=== PATIENT | female | born 1960 | race Caucasian/White ===

== ENCOUNTER 2021-02-02 06:25 | Inpatient (IN) | payer OTHER ==
[~2021-02-02] VITALS: Ht 165.1 cm; Wt 95.1 kg
[2021-02-02 06:46] LABS: BASOPHIL 0.2 % (0-2); EOSINOPHIL 0.4 % (0-5); HCT 34.4 % (37.0-47.0); HGB 12.3 g/dl (12.5-16.0); LYMPHOCYTE 6.4 % (15-48); MCH 30.1 pg (25.0-31.0); MCHC 35.8 g/dL (32.0-36.0); MCV 84.1 fL (78.0-100.0); MONOCYTE 2.5 % (0-12); MPV 9.6 fL (6.0-9.5); NEUTROPHIL 89.9 % (41-80); NRBC 0; PLT 157 K/uL (150-400); RBC 4.09 M/uL (4.20-5.40); RDW 12.3 % (11.5-14.0); WBC 4.8 K/uL (4.0-10.5)
[2021-02-02 07:11] LABS: PRO-BNP 727 pg/mL (<125)
[2021-02-02 07:13] LABS: LACTIC ACID 1.2 mmol/L (0.4-1.9)
[2021-02-02 07:38] LABS: ALBUMIN 3.3 g/dL (3.4-5.0); ALKALINE PHOSHATASE 99 U/L (46-116); ALT 131 U/L (14-59); AMYLASE 42 U/L (25-115); AST 112 U/L (15-37); BILIRUBIN - TOTAL 0.6 mg/dL (0.2-1.0); BUN 7 mg/dL (7-18); BUN/CREAT RATIO (CALC) 8.9 RATIO; C-REACTIVE PROTEIN >18.00 mg/dL (<=0.90); CHLORIDE 95 mmol/L (98-107); CO2 (BICARBONATE) 33 mmol/L (21-32); CREATININE 0.79 mg/dL (0.51-0.95); GLOBULIN (CALCULATION) 3.4 g/dL; GLUCOSE 126 mg/dL (74-106); POTASSIUM 3.1 mmol/L (3.5-5.1); TOTAL PROTEIN 6.7 g/dL (6.4-8.2)
[2021-02-02 08:49] LABS: FT4 (FREE T4) 1.2 ng/dL (0.76-1.46); MAGNESIUM 1.5 mg/dL (1.8-2.4); PHOSPHORUS 2.9 mg/dL (2.6-4.7)
[2021-02-02 08:50] LABS: BILIRUBIN NEGATIVE (NEGATIVE); BLOOD NEGATIVE Ery/uL (NEGATIVE); CLARITY CLEAR (CLEAR); COLOR YELLOW (YELLOW); GLUCOSE (U) NORMAL (NORMAL); LEUKOCYTES NEGATIVE Leu/uL (NEGATIVE); NITRITE NEGATIVE (NEGATIVE); PROTEIN NEGATIVE (NEGATIVE); SPECIFIC GRAVITY <=1.005 (1.001-1.030); UROBILINOGEN 0.2 mg/dL (0.2-1.0)
[2021-02-02] MEDS ORDERED: HCTZ12.5 MG PO (11:48)
[2021-02-02] MEDS ORDERED: NEURONTIN300 MG PO (11:48)
[2021-02-02] MEDS ORDERED: LIPITOR40 MG PO (11:49)
[2021-02-02] MEDS ORDERED: NORCO 5-325 TA1 EACH PO (11:50)
[2021-02-02] MEDS ORDERED: MOTRIN600 MG PO (11:50)
[2021-02-03 07:38] LABS: BASOPHIL 0 % (0-2); EOSINOPHIL 0 % (0-5); HCT 35.5 % (37.0-47.0); HGB 12.2 g/dl (12.5-16.0); LYMPHOCYTE 5.5 % (15-48); MCH 29.3 pg (25.0-31.0); MCHC 34.4 g/dL (32.0-36.0); MCV 85.3 fL (78.0-100.0); MONOCYTE 5.9 % (0-12); MPV 9.5 fL (6.0-9.5); NEUTROPHIL 88.1 % (41-80); NRBC 0; PLT 248 K/uL (150-400); RBC 4.16 M/uL (4.20-5.40); RDW 12.6 % (11.5-14.0); WBC 6.3 K/uL (4.0-10.5)
[2021-02-03 09:13] LABS: ALBUMIN 3.3 g/dL (3.4-5.0); ALKALINE PHOSHATASE 100 U/L (46-116); ALT 147 U/L (14-59); AST 99 U/L (15-37); BILIRUBIN - TOTAL 0.5 mg/dL (0.2-1.0); BUN 11 mg/dL (7-18); BUN/CREAT RATIO (CALC) 15.5 RATIO; CHLORIDE 102 mmol/L (98-107); CO2 (BICARBONATE) 34 mmol/L (21-32); CREATININE 0.71 mg/dL (0.51-0.95); GLOBULIN (CALCULATION) 3.8 g/dL; GLUCOSE 126 mg/dL (74-106); POTASSIUM 4.2 mmol/L (3.5-5.1); TOTAL PROTEIN 7.1 g/dL (6.4-8.2)
[2021-02-03 09:15] LABS: C-REACTIVE PROTEIN > 18.00 mg/dL (<=0.90); MAGNESIUM 2.5 mg/dL (1.8-2.4)
[2021-02-04 05:21] LABS: BASOPHIL 0 % (0-2); EOSINOPHIL 0 % (0-5); HGB 11.7 g/dl (12.5-16.0); LYMPHOCYTE 9.9 % (15-48); MCH 29.9 pg (25.0-31.0); MCHC 34.4 g/dL (32.0-36.0); MONOCYTE 8.5 % (0-12); MPV 9.2 fL (6.0-9.5); NEUTROPHIL 80.9 % (41-80); NRBC 0; PLT 275 K/uL (150-400); RBC 3.91 M/uL (4.20-5.40); RDW 12.8 % (11.5-14.0); WBC 5.7 K/uL (4.0-10.5)
[2021-02-04 06:00] LABS: ALBUMIN 3.2 g/dL (3.4-5.0); BILIRUBIN - TOTAL 0.5 mg/dL (0.2-1.0); BUN/CREAT RATIO (CALC) 18.2 RATIO; CREATININE 0.88 mg/dL (0.51-0.95); GLOBULIN (CALCULATION) 3.5 g/dL; POTASSIUM 4.1 mmol/L (3.5-5.1); TOTAL PROTEIN 6.7 g/dL (6.4-8.2)
[2021-02-05 05:28] LABS: BASOPHIL 0.1 % (0-2); HCT 33.9 % (37.0-47.0); HGB 11.5 g/dl (12.5-16.0); LYMPHOCYTE 8.6 % (15-48); MCH 29.5 pg (25.0-31.0); MCHC 33.9 g/dL (32.0-36.0); MCV 86.9 fL (78.0-100.0); MONOCYTE 10.1 % (0-12); MPV 9.2 fL (6.0-9.5); NEUTROPHIL 80.1 % (41-80); PLT 306 K/uL (150-400); RDW 12.8 % (11.5-14.0); WBC 8.98 K/uL (4.0-10.5)
[2021-02-05 06:02] LABS: BILIRUBIN - TOTAL 0.3 mg/dL (0.2-1.0); BUN/CREAT RATIO (CALC) 16.5 RATIO; C-REACTIVE PROTEIN 6.6 mg/dL (<=0.90); CREATININE 0.79 mg/dL (0.51-0.95); GLOBULIN (CALCULATION) 3.4 g/dL; POTASSIUM 4.3 mmol/L (3.5-5.1); TOTAL PROTEIN 6.4 g/dL (6.4-8.2)
[2021-02-06 07:14] LABS: BASOPHIL 0.2 % (0-2); HCT 35.7 % (37.0-47.0); HGB 12.3 g/dl (12.5-16.0); LYMPHOCYTE 5.6 % (15-48); MCH 29.7 pg (25.0-31.0); MCHC 34.5 g/dL (32.0-36.0); MCV 86.2 fL (78.0-100.0); MONOCYTE 6.3 % (0-12); MPV 9.2 fL (6.0-9.5); NEUTROPHIL 85.8 % (41-80); PLT 352 K/uL (150-400); RBC 4.14 M/uL (4.20-5.40); RDW 12.6 % (11.5-14.0); WBC 11.13 K/uL (4.0-10.5)
[2021-02-06 07:58] LABS: BILIRUBIN - TOTAL 0.4 mg/dL (0.2-1.0); BUN/CREAT RATIO (CALC) 17.8 RATIO; C-REACTIVE PROTEIN 7.4 mg/dL (<=0.90); CREATININE 0.73 mg/dL (0.51-0.95); GLOBULIN (CALCULATION) 3.4 g/dL; POTASSIUM 4.6 mmol/L (3.5-5.1); TOTAL PROTEIN 6.4 g/dL (6.4-8.2)
[2021-02-07 06:03] LABS: BASOPHIL 0.4 % (0-2); EOSINOPHIL 0 % (0-5); HGB 12.4 g/dl (12.5-16.0); LYMPHOCYTE 5.6 % (15-48); MCH 29.7 pg (25.0-31.0); MCHC 34.4 g/dL (32.0-36.0); MCV 86.1 fL (78.0-100.0); MONOCYTE 4.5 % (0-12); MPV 9.4 fL (6.0-9.5); NEUTROPHIL 85.1 % (41-80); NRBC 0.2; PLT 367 K/uL (150-400); RBC 4.18 M/uL (4.20-5.40); RDW 12.5 % (11.5-14.0); WBC 12.6 K/uL (4.0-10.5)
[2021-02-07 06:47] LABS: ALBUMIN 2.9 g/dL (3.4-5.0); BILIRUBIN - TOTAL 0.4 mg/dL (0.2-1.0); BUN/CREAT RATIO (CALC) 22.2 RATIO; C-REACTIVE PROTEIN 5.1 mg/dL (<=0.90); CREATININE 0.81 mg/dL (0.51-0.95); GLOBULIN (CALCULATION) 3.4 g/dL; POTASSIUM 4.9 mmol/L (3.5-5.1); TOTAL PROTEIN 6.3 g/dL (6.4-8.2)
--- NOTE | 2021-02-07 10:54 | NUR ---
PATIENT STATES THAT SHE FEELS SO MUCH BETTER, AND WANTS TO GO HOME TODAY
[2021-02-08] MEDS ORDERED: ADVAIR 250-501 EACH INH (12:10)
[2021-02-08] MEDS ORDERED: MEDROL 4MG DOSEP4 MG PO (12:10)
--- NOTE | 2021-02-08 14:29 | NUR ---
02/08/21 Ms. Louie lives at home with her spouse who is also dx with COVID. Mr. Louie reports to be unable to transport home. [facility] cannot transport until 02/09/21. Mr. Louie is in agreement to sign the EMS ABN form. - Ms. Louie was educated that she would typically have 3 choices for [employer]. However, [facility] is the only agencies that will accept her. She was in agreement. [facility] will see her on 02/10/21. - Report given to MS KAR Malloy.
--- NOTE | 2021-02-08 14:34 | NUR ---
PER CASE MANAGEMENT, AGREED TO SIGN PAPERS FOR EMS TO TAKE PATIENT HOME. PATIENT HAS 2 TANKS OF O2 TO BE TAKEN HOME WITH [employer]
--- NOTE | 2021-02-10 10:18 | NUR ---
02/10/21 Evgeny reports to be in the home with another family member and Ms. Louie would also like [facility]. [facility]gen[facility] agreed to accept her insurance. [facility] was informed.
== END 2021-02-08 15:53 | disposition home health service (06) | DRG 177 ==
LOC: FER 06:25 → FMS 09:46
PROVIDERS: Emergency Medicine Emergency Medical Services; ADMIT Internal Medicine
PROC: 8E0ZXY6 Isolation (ICD-10-PCS; principal; 2021-02-02)
PROC: XW033E5 Introduction of Remdesivir Anti-infective into Peripheral Vein, Percutaneous Approach, New Technology Group 5 (ICD-10-PCS; 2021-02-02)
PROC: XW0DXM6 Introduction of Baricitinib into Mouth and Pharynx, External Approach, New Technology Group 6 (ICD-10-PCS; 2021-02-03)
DX: U07.1 COVID-19 (principal); J96.01 Acute respiratory failure with hypoxia; J12.82 Pneumonia due to coronavirus disease 2019; G47.33 Obstructive sleep apnea (adult) (pediatric); E05.90 Thyrotoxicosis, unspecified without thyrotoxic crisis or storm; I10 Essential (primary) hypertension; E78.5 Hyperlipidemia, unspecified; G89.29 Other chronic pain; Z88.6 Allergy status to analgesic agent; Z88.8 Allergy status to other drugs, medicaments and biological substances; Z90.710 Acquired absence of both cervix and uterus; Z98.890 Other specified postprocedural states; Z79.899 Other long term (current) drug therapy; Z87.891 Personal history of nicotine dependence
CPT/HCPCS: 36415; 36600; 71045; 71275; 80053; 81003; 82150; 82728; 82803; 83605; 83735; 83880; 84100; 84145; 84439; 84443; 84484; 85025; 85379; 86140; 87040; 87088; 93005; 94640; 94760; C9399; J0696; J1100; J1650; J2405; J3475; J7050; J8540; Q9967; U0002

== ENCOUNTER 2021-02-22 15:16 | Inpatient (IN) | payer OTHER ==
[~2021-02-22] VITALS: Ht 165.1 cm; Wt 100.0 kg
[~2021-02-22 15:16] MED LIST: ADVAIR 250-501 EACH INH; HCTZ12.5 MG PO; LIPITOR40 MG PO; MEDROL 4MG DOSEP4 MG PO; MOTRIN600 MG PO; NEURONTIN300 MG PO; NORCO 5-325 TA1 EACH PO
[2021-02-22 15:49] LABS: BASOPHIL 0.9 % (0-2); EOSINOPHIL 11.4 % (0-5); HCT 36.4 % (37.0-47.0); HGB 12.3 g/dl (12.5-16.0); LYMPHOCYTE 16.7 % (15-48); MCH 29.2 pg (25.0-31.0); MCHC 33.8 g/dL (32.0-36.0); MCV 86.5 fL (78.0-100.0); MONOCYTE 7.6 % (0-12); MPV 9.2 fL (6.0-9.5); NRBC 0; PLT 177 K/uL (150-400); RBC 4.21 M/uL (4.20-5.40); RDW 13.3 % (11.5-14.0); WBC 5.3 K/uL (4.0-10.5)
[2021-02-22 16:08] LABS: LACTIC ACID 1.1 mmol/L (0.4-1.9); PRO-BNP 431 pg/mL (<125)
[2021-02-22 16:15] LABS: ALBUMIN 3.2 g/dL (3.4-5.0); BILIRUBIN - TOTAL 0.4 mg/dL (0.2-1.0); BUN/CREAT RATIO (CALC) 5.3 RATIO; C-REACTIVE PROTEIN 3.6 mg/dL (<=0.90); CREATININE 0.76 mg/dL (0.51-0.95); GLOBULIN (CALCULATION) 4.2 g/dL; MAGNESIUM 1.8 mg/dL (1.8-2.4); POTASSIUM 3.9 mmol/L (3.5-5.1); TOTAL PROTEIN 7.4 g/dL (6.4-8.2)
[2021-02-23 00:59] LABS: CORONAVIRUS 2019 SARS-COV-2 NEGATIVE (NEGATIVE); INFLUENZA A NAA NEGATIVE (NEGATIVE)
--- NOTE | 2021-02-23 15:27 | NUR ---
Ms. Louie lives at home with her spouse. She was on home 02 at 6 L with an oximizer. She also has a Bi-PAP which she was not using. The 02 was not blended into the Bi-PAP. She is current with [facility]. [facility] was notified of admission.
--- NOTE | 2021-02-24 14:12 | NUR ---
02/24/21 [facility] was requested to bring in Ms. Louie' Bi-PAP per Dr. Rizvi's request.
[2021-02-25 05:46] LABS: BASOPHIL 0.2 % (0-2); EOSINOPHIL 0.1 % (0-5); HCT 33.9 % (37.0-47.0); HGB 11.3 g/dl (12.5-16.0); MCH 29.6 pg (25.0-31.0); MCHC 33.3 g/dL (32.0-36.0); MCV 88.7 fL (78.0-100.0); MONOCYTE 7.2 % (0-12); MPV 9.4 fL (6.0-9.5); NEUTROPHIL 75.4 % (41-80); NRBC 0; PLT 204 K/uL (150-400); RBC 3.82 M/uL (4.20-5.40); RDW 13.9 % (11.5-14.0); WBC 9.9 K/uL (4.0-10.5)
[2021-02-25 06:11] LABS: BUN/CREAT RATIO (CALC) 17.1 RATIO; C-REACTIVE PROTEIN 0.5 mg/dL (<=0.90); CREATININE 0.7 mg/dL (0.51-0.95); POTASSIUM 3.7 mmol/L (3.5-5.1)
[2021-02-28 06:23] LABS: BASOPHIL 0.6 % (0-2); HCT 36.8 % (37.0-47.0); HGB 12.1 g/dl (12.5-16.0); LYMPHOCYTE 22.5 % (15-48); MCH 28.9 pg (25.0-31.0); MCHC 32.9 g/dL (32.0-36.0); MONOCYTE 9.3 % (0-12); MPV 9.4 fL (6.0-9.5); NEUTROPHIL 50.7 % (41-80); NRBC 0; PLT 197 K/uL (150-400); RBC 4.18 M/uL (4.20-5.40); RDW 14.4 % (11.5-14.0); WBC 6.5 K/uL (4.0-10.5)
[2021-02-28 06:52] LABS: BUN/CREAT RATIO (CALC) 23.5 RATIO; CREATININE 0.85 mg/dL (0.51-0.95); POTASSIUM 4.1 mmol/L (3.5-5.1)
[2021-03-01] MEDS ORDERED: VENTOLIN HFA IN18 GM INH (11:00)
[2021-03-01] MEDS ORDERED: TOPROL XL 25MG25 MG PO (12:02)
--- NOTE | 2021-03-01 12:50 | NUR ---
03/01 Ms. Louie is being discharged today. [facility] has been notified. Mr. Louie reports that their 02 tanks are full for transport home. - A letter was provided for [facility] [facility] per his request, verifying that Ms. Louie is on home . Mr. Cartagena reports his plans to present the letter to the Utility Companies in order for them to be on a priority list to restore power in times of outages. - Report given to MS KAR Maddox.
== END 2021-03-01 14:03 | disposition home or self-care (01) | DRG 193 ==
LOC: FER 15:16 → FTCU 21:32 → FMS 02-27 22:38
PROVIDERS: Allergy & Immunology Allergy; Emergency Medicine; Nurse Practitioner; ADMIT Internal Medicine
PROC: 8E0ZXY6 Isolation (ICD-10-PCS; principal; 2021-02-22)
PROC: 5A09557 Assistance with Respiratory Ventilation, Greater than 96 Consecutive Hours, Continuous Positive Airway Pressure (ICD-10-PCS; 2021-02-22)
DX: J18.9 Pneumonia, unspecified organism (principal); J96.01 Acute respiratory failure with hypoxia; J96.02 Acute respiratory failure with hypercapnia; B94.8 Sequelae of other specified infectious and parasitic diseases; I48.91 Unspecified atrial fibrillation; I10 Essential (primary) hypertension; E78.5 Hyperlipidemia, unspecified; D72.10 Eosinophilia, unspecified; G47.33 Obstructive sleep apnea (adult) (pediatric); F41.9 Anxiety disorder, unspecified; E05.90 Thyrotoxicosis, unspecified without thyrotoxic crisis or storm; G89.29 Other chronic pain; I25.2 Old myocardial infarction; Z88.5 Allergy status to narcotic agent; Z88.8 Allergy status to other drugs, medicaments and biological substances; Z98.890 Other specified postprocedural states; Z99.81 Dependence on supplemental oxygen; Z88.6 Allergy status to analgesic agent; Z79.899 Other long term (current) drug therapy; Z90.710 Acquired absence of both cervix and uterus; Z87.891 Personal history of nicotine dependence; Z82.49 Family history of ischemic heart disease and other diseases of the circulatory system; Z83.1 Family history of other infectious and parasitic diseases; Z82.5 Family history of asthma and other chronic lower respiratory diseases
CPT/HCPCS: 36415; 36600; 71275; 80048; 80053; 82728; 82803; 83605; 83615; 83735; 83880; 84145; 84443; 84484; 85025; 85379; 86140; 93005; 94010; 94640; 94760; 94762; J1650; J2060; J2930; J7050; J8540; Q9967; U0002